=== PATIENT | male | born 1950 | race Caucasian/White ===

== ENCOUNTER → 2016-07-13 | Outpatient (CLI) | payer OTHER, MEDICARE ==
[~2016-07-13] VITALS: Ht 185.4 cm; Wt 104.3 kg
[~2016-07-13] MED LIST: ALPHA LIPOIC AC50 M1 PO; ALTACE 1.25 M1.25 M1 PO; ALTACE5 MG PO; ASPIR 8181 MG PO; ASPIRIN EC81 M1 PO; CO Q-10100 M1 PO; CO Q-10100 MG PO; COQ10 SG 100 S1 EACH PO; COUMADIN 2 MG TA2 M1; COUMADIN 5 MG TA5 M1; CRESTOR10 MG PO; ENOXAPARIN40 MG/0.1; FISH OIL 1,0001 EAC5 PO; GLUCOSAMINE &1 EAC1 PO; HYDROCODON-ACE1 EAC7 PO; HYDROXYZINE HCL25 M1 PO; METANX CAPSULE1 EACH PO; MULTIVITAMINS1 EAC7 PO; NORCO 10-325 T1 EACH PO; NORFLEX100 MG PO; NORTRIPTYLINE H25 M3 PO; OMEPRAZOLE 20 M20 M1 PO; PERCOCET 10-321 EAC1 PO; PERCOCET 10-321 EACH; PERCOCET 10-321 EACH PO; RAMIPRIL PO; SIMVASTATIN40 MG PO; SLO-NIACIN500 MG PO; TOPROL XL25 MG PO; XARELTO10 MG PO; ZANAFLEX4 MG PO
--- NOTE | ~2016-07-13 | P ---
[facility] [place] [address] PROCEDURE REPORT Name: COLIN ARAUJO Room #: REG [facility]#: [id number] Admission: 07/13/16 Attend Phys: Kendall Miles Discharge: Date of : 52 Report #: [id number] THIS REPORT FOR: //name// CC: Kendall Patiño MD DATE OF SERVICE: 07/13/2016 PROCEDURE PERFORMED: Colonoscopy with biopsies. HISTORY OF PRESENT ILLNESS: The patient is a 66-year-old male with a history of colon polyps. No family history of colon cancer. Denies any symptoms. DESCRIPTION OF PROCEDURE: The risks and benefits of the procedure were explained to the patient, those risks including but not limited to bleeding, perforation, the risk of sedation. He understood these risks and gave informed consent. Sedation was given using propofol per anesthesia. Next, a digital rectal exam was initially performed, which was normal. Next, using a standard Fujinon colonoscope, the scope was placed in the patient's anus and advanced under direct vision to the cecum. The overall prep was good. In the cecum, there was a 5-mm sessile polyp. This was removed with cold forceps, otherwise normal. The ileocecal valve was normal. The ascending, transverse and descending colon were normal. A few scattered diverticula were noted in the sigmoid colon, no evidence of inflammation, otherwise normal. In the rectum, there was a 4-mm sessile polyp also removed with cold forceps. On retroflexion, small nonbleeding internal hemorrhoids were noted, otherwise normal colonoscopy. The scope was then withdrawn and the procedure terminated. The patient tolerated the procedure well. IMPRESSION: 1. Two small colonic polyps. 2. Sigmoid diverticulosis. 3. Small internal hemorrhoids. 4. Otherwise, normal colonoscopy. RECOMMENDATIONS: 1. Await biopsy results. 2. If polyps are ___, repeat in 10 years; if adenomatous polyps, repeat in [address] [address] PROCEDURE REPORT Name: COLIN ARAUJO Room #: REG Chloe Lao#: [id number] Admission: 07/13/16 Attend Phys: Kendall Miles Discharge: Date of : 52 Report #: [id number] Thank you for allowing me to participate in his care. By: [id number] Kendall Fraser MD /nt
--- NOTE | ~2016-07-13 | P ---
[facility] [place] [address] PROCEDURE REPORT Name: COLIN ARAUJO [id number] Admission: 07/13/16 Attend Phys: Kendall Miles Discharge: Date of : 52 Report #: [id number] THIS REPORT FOR: //name// CC: Kendall Patiño MD DATE OF SERVICE: 07/13/2016 PROCEDURE PERFORMED: Upper endoscopy. HISTORY OF PRESENT ILLNESS: The patient is a 66-year-old male with a history of gastroesophageal reflux disease, underwent an upper endoscopy by myself 6 years ago. At that time, he had ____ esophagitis and recommended daily PPI therapy. He did take this for some time and then he has weaned himself off PPI therapy. He denies any significant heartburn or dysphagia. Plan is for EGD. DESCRIPTION OF PROCEDURE: The risks and benefits of the procedure were explained to the patient, those risks including but not limited to bleeding, perforation, the risk of sedation. He understood these risks and gave informed consent. Sedation was given using propofol per anesthesia. Next, using a standard IASO Pharman upper endoscope, the scope was placed in the patient's mouth and advanced under direct vision through the esophagus, stomach and into the second portion of the duodenum. In the upper esophagus, 2 small inlet patches were noted. In the mid esophagus, there was a single diverticulum, opposite of this was a mildly dilated vein, but this does not appear to be consistent with a varices as no other veins were noted in the distal esophagus. I suspect this is just a normal variant. In the distal esophagus at the GE junction, mild grade A erosive esophagitis was noted. Upon entering the stomach, a medium-sized hiatal hernia was noted. Overall, the gastric mucosa was normal. The pylorus was normal ____. The duodenal bulb, first and second portion were all normal. The scope was then withdrawn and the procedure terminated. The patient tolerated the procedure well. IMPRESSION: 1. Grade A erosive esophagitis. 2. Esophageal diverticulum. 3. Hiatal hernia. 4. Otherwise, normal upper endoscopy. RECOMMENDATIONS: 1. Consider daily PPI therapy versus on a p.r.n. basis as the patient only has mild esophagitis today. 2. We will proceed with colonoscopy next today. [address] [address] PROCEDURE REPORT Name: COLIN ARAUJO Room #: REG ELIANE Lao#: [id number] Admission: 07/13/16 Attend Phys: Kendall Miles Discharge: Date of : 52 Report #: [id number] Thank you for allowing me to participate in his care. By: [id number] Kendall Fraser MD /nt
== END | disposition home or self-care (01) ==
LOC: GI 08:06
DX: Z12.11 Encounter for screening for malignant neoplasm of colon (principal); K20.8 Other esophagitis; D12.0 Benign neoplasm of cecum; D12.8 Benign neoplasm of rectum; K57.30 Diverticulosis of large intestine without perforation or abscess without bleeding; K64.8 Other hemorrhoids; K21.9 Gastro-esophageal reflux disease without esophagitis; K44.9 Diaphragmatic hernia without obstruction or gangrene
CPT/HCPCS: 62110

== ENCOUNTER → 2016-07-21 | Outpatient (CLI) | payer OTHER, MEDICARE | LOC: NUC 07-19 07:50 | DX: R94.5 Abnormal results of liver function studies (principal) ==

== ENCOUNTER → 2016-07-28 | Outpatient (CLI) | payer OTHER, MEDICARE ==
[~2016-07-28] MED LIST changes: +HYDROXYZINE HCL25 M2 PO; +PERCOCET PO; +SENNA8.6 MG PO
--- NOTE | ~2016-07-28 | S ---
[facility] [place] [address] SURGICAL PATH RPT PROCEDURE Name: REID NICHOLAS Room #: REG CLI Maureen.#: [id number] Admission: 07/28/16 Date of : 52 Discharge: Report #: [id number] Path Case #: [id number] PATHOLOGY REPORT COLLECTION DATE: 07/28/2016 RECEIVED DATE: 07/29/2016 SUBMITTING PHYS: Dr. Kendall Fraser OTHER PHYS: Dr. Evelio Patiño SPECIMEN(S) RECEIVED: A.Periampullary biopsy * * * * * * * * * * * * FINAL DIAGNOSIS: Periampullary biopsy: - Chronic inflammation with reactive changes. - There is no evidence of malignancy. COMMENT: Co-review: This case is also reviewed by Dr. Yoana Avery. PATHOLOGIST: Dudley Salazar M.D. REPORT ELECTRONICALLY SIGNED BY: Dudley Salazar M.D. DATE/TIME: 08/02/2016 15:58 * * * * * * * * * * * * GROSS PATHOLOGY: Received in formalin labeled "Reid Nicholas, periampullary biopsy," is a segment of dark allen soft tissue measuring 0.5 cm in maximum dimension. The specimen is submitted entirely in cassette A1. (KAH; 07/29/2016) CLINICAL HISTORY: Pre-op diagnosis: Obstructive jaundice Post-op diagnosis: Stent placed, periampullary biopsy done INITIAL CPT CODE(S): A; 98405 Professional services performed by [employer], [address] [address]. Technical services performed by [facility], [address] [facility], [address], [place] [address]. [facility] [address] [place] [address] SURGICAL PATH RPT PROCEDURE Name: REID NICHOLAS Room #: REG ELIANE Lao#: [id number] Admission: 07/28/16 Date of : 52 Discharge: Report #: [id number] Path Case #: [id number] [address] PHONE: [phone] DIRECTOR: El Guillory M.D. * * * END OF REPORT * * *
--- NOTE | ~2016-07-28 | P ---
[facility] [place] [address] PROCEDURE REPORT Name: COLIN ARAUJO Room #: REG [facility]#: [id number] Admission: 07/28/16 Attend Phys: Kendall Miles Discharge: Date of : 52 Report #: [id number] THIS REPORT FOR: //name// CC: Kendall Patiño MD DATE OF SERVICE: 07/28/2016 DATE OF PROCEDURE: 07/28/2016. PROCEDURE PERFORMED: ERCP with sphincterotomy and stent placement as well as biopsies. HISTORY OF PRESENT ILLNESS: The patient is a 66-year-old male with abdominal pain who underwent EGD, colonoscopy by myself on 07/13/2016. Upper endoscopy at that time showed grade A erosive esophagitis, esophageal diverticulum, hiatal hernia, but otherwise normal. Colonoscopy, 2 small polyps were removed as well as diverticulosis noted. The patient has had elevated liver function tests and underwent a laparoscopic cholecystectomy by Dr. Brown yesterday. Intraoperative cholangiogram showed significantly dilated common bile duct, and no flow of contrast was noted into the duodenum. It appears to have stopped near the papilla. Therefore, we discussed proceeding with an ERCP. The patient's labs today showed a total bilirubin of 4.3, AST is 267, alkaline phosphatase 772, ALT is 485. WBC is 10.7, hemoglobin 15.8. Plan is for ERCP. DESCRIPTION OF PROCEDURE: The risks and benefits of the procedure were explained to the patient, those risks including but not limited to bleeding, perforation, the risk of sedation as well as potential risk for post-ERCP pancreatitis. He understood these risks and gave informed consent. The procedure was performed under general anesthesia in the interventional radiology suite. The patient was given 1 gram of Ancef prior to the procedure and 50 mg indomethacin rectal suppository was also given. Next, using a standard Fujinon side-viewing ERCP scope, the scope was placed in the patient's mouth and advanced under direct vision through the esophagus, stomach and into the second portion of the duodenum. The papilla was enlarged abnormally, and there was evidence of friability of the surrounding mucosa of the periampullary region. Also noted was bright red blood with a clot. At this point, using a Cristopher-kiwi666 0.025-dome tipped sphincterotome catheter, common bile duct was cannulated without difficulty, and a cholangiogram was obtained. The common bile duct was significantly dilated at approximately 2 cm. No obvious filling defects were noted. There was mild dilation of the intrahepatic ducts. At this point, a sphincterotomy was then performed without difficulty. There was some bile drainage, but not significant bile flow after sphincterotomy. Next, several balloon sweeps were then performed of the common bile duct. No stones were [facility] [address] [place] [address] PROCEDURE REPORT Name: COLIN ARAUJO Room #: REG [facility]#: [id number] Admission: 07/28/16 Attend Phys: Kendall Miles Discharge: Date of : 52 Report #: [id number] removed or sludge or debris was noted. Because of the abnormal appearance of the periampullary area, this may be causing obstruction. I proceeded to place a #7 Dominican x 7 cm straight stent into the bile ducts without difficulty. There was good bile flow after stent was placed. I then obtained several biopsies of the periampullary area. At this point, the scope was then withdrawn, and the procedure terminated. The patient tolerated the procedure well. IMPRESSION: Abnormal-appearing papilla which was enlarged as well as irritated and some obvious blood at the opening. This may represent an adenomatous change or tumor. Also consider the possibility that the patient passed the stone, which caused trauma to the open end of the papilla as well. A sphincterotomy was performed as well as balloon sweeps as described above. No obvious stones were noted, and a single stent was placed. Good bile drainage was noted after stent placement. RECOMMENDATIONS: 1. Await biopsy results. 2. We would repeat liver function tests early next week. 3. In a few weeks, would recommend proceeding with an endoscopic ultrasound at which point, the stent could be removed, and the periampullary region could be further evaluated. Thank you for allowing me to participate in his care. <ELECTRONICALLY SIGNED> By: Kendall Fraser MD 08/02/16 1221 0825 0900 Kendall Fraser MD /nt
[2016-07-28 12:09] LABS: HEMATOCRIT 44.5 % (42.0-52.0); HEMOGLOBIN 15.8 gm/dL (14.0-18.0); MCH 32.3 pg (26.0-34.0); MCHC 35.6 g/dL (28.0-37.0); MCV 90.6 fL (80.0-100.0); RBC 4.91 mil/uL (4.50-6.00); RDW 14.8 % (10.5-14.5); WBC 10.7 thou/uL (4.0-11.0)
[2016-07-28 12:18] LABS: CALCIUM 9.1 mg/dL (8.5-10.1); CREATININE 0.9 mg/dL (0.7-1.3); POTASSIUM 3.9 mmol/L (3.5-5.1)
[2016-07-28 12:23] LABS: ALBUMIN 4.1 g/dL (3.4-5.0); TOTAL BILIRUBIN 4.3 mg/dL (<0.1-1.0); TOTAL PROTEIN 7.9 g/dL (6.4-8.2)
== END | disposition home or self-care (01) ==
LOC: SPEC 07:26
PROVIDERS: Specialist
DX: K83.8 Other specified diseases of biliary tract (principal)
CPT/HCPCS: 50850; 62110; 62900; 70005

== ENCOUNTER → 2016-09-07 | Outpatient (CLI) | payer OTHER, MEDICARE | LOC: PET 01:51 | DX: C25.9 Malignant neoplasm of pancreas, unspecified (principal); K86.9 Disease of pancreas, unspecified ==